=== PATIENT | female | born 1985 | race Hispanic/Latino ===

== ENCOUNTER → 2018-02-27 08:10 | Outpatient (CLI) | payer BC, SELFPAY ==
[2017-02-19 17:46] VITALS: BMI 28.8
--- OUTSIDE RECORDS SUMMARY | 2018-05-03 20:52 | XMS RPT_ITS ---
:1985 Author Organization OHIP Care Team Providers Name Role Phone Rocco Mix Attending Unavailable Rocco Mix Primary Care Unavailable PROBLEMS PROBLEMS DATE TYPE CONDITION / CODE ATTENDING STATUS SOURCE 02/27/2018 Unknown 272.4 - Other and Dominguez, Bruno Vargas unspecified [facility] hyperlipidemia / Hospital 272.4(ICD-9) Repository 02/27/2018 Unknown E78.5 - Dominguez Active Alicia Hyperlipidemia, [facility] unspecified / Hospital E78.5(ICD-10) Repository PROCEDURES PROCEDURES No Procedure Records FoundRESULTS RESULTS NMR LIPOPROFILE Collected: 02/27/2018 Status: F Source: [facility] 8:12 AM [facility] REPOSITORY TYPE CODE TESTS RESULT OUT OF RANGE REFERENCE UNITS LAB L3500.0050 NMR Normal LIPOPROFILE Result Comment: TEST RESULT LIMITS NMR LipoProfile LDL Particle Number LDL-P 2224 High nmol/L <1000 Low < 1000 Moderate 1000 - 1299 Borderline-High 1300 - 1599 High 1600 - 2000 Very High > 2000 Lipids LDL-C 171 High mg/dL 0 - 99 Optimal < 100 Above optimal 100 - 129 Borderline 130 - 159 High 160 - 189 Very high > 189 Comment: LDL-C is inaccurate if patient is non-fasting. HDL-C 52 mg/dL >39 Triglycerides 168 High mg/dL 0 - 149 Cholesterol, Total 257 High mg/dL 100 - 199 LDL and HDL Particles HDL-P (Total) 37.7 umol/L >=30.5 Small LDL-P 1457 High nmol/L <=527 LDL Size 20.2 Low nm >20.5 INTERPRETATIVE INFORMATION PARTICLE CONCENTRATION AND SIZE <--Lower CVD Risk Higher CVD Risk--> LDL AND HDL PARTICLES Percentile in Reference Population HDL-P (total) High 75th 50th 25th Low >34.9 34.9 30.5 26.7 <26.7 Small LDL-P Low 25th 50th 75th High <117 117 527 839 >839 LDL Size <-Large (Pattern A)-> <-Small (Pattern B)-> 23.0 20.6 20.5 19.0 Comment: Small LDL-P and LDL Size are associated with CVD risk, but not after LDL-P is taken into account. These assays were developed and their performance characteristics determined by [employer]. These assays have not been cleared by the [place] Food and Drug Administration. The clinical utility of these laboratory values have not been fully established. Insulin Resistance Score LP-IR Score 55 High <=45 INSULIN RESISTANCE MARKER <--Insulin Sensitive Insulin Resistant--> Percentile in Reference Population Insulin Resistance Score LP-IR Score Low 25th 50th 75th High <27 27 45 63 >63 Comment: LP-IR Score is inaccurate if patient is non-fasting. The LP-IR score is a laboratory developed index that has been associated with insulin resistance and diabetes risk and should be used as one component of a physician's clinical assessment. The LP-IR score listed above has not been cleared by the [place] Food and Drug Administration. [facility]. ORIGINAL REPORT ON FILE IN LAB CONTAINS ADDITIONAL TEST SITE INFORMATION. Performed By: #### L3500.0000 #### [facility] (refer to report for specific site) refer to report for address and phone number ALLERGIES ALLERGIES DATE TYPE / CODE NAME / CODE REACTION SEVERITY SOURCE 02/16/2017 Drug No Known Unknown [facility] Allergy/4160 Allergies/F00 Hospital 04387(SNOMED [id number](RXNOR Repository CT) M) ENCOUNTERS ENCOUNTERS ADMIT/DISCHARGE ACCOUNT ADMITTING ENCOUNTER LOCATION SOURCE NUMBER CLASS 02/27/2018 [id number] Ambulatory Alicia Alicia 2 [facility] ing:LAB.FUTSHONDA Repository E PAYERS PAYERS ENCOUNTER GUARANTOR PAYER SUBSCRIBER SOURCE 02/27/2018 Nancy [id number] Primary HUY BRIGIDMORASUKUMAR Vargas KYRA [facility] [place] [facility] Number: [facility] [address]Wno: ([id number]) [id number] Repository () Date:[id number], [place] [address]MZ: 02/27/2018 Secondary NOT GIVENUNK [place] Insurance:SELF PAY [facility] Number: Effective Repository Date:2018-02-27
== END ==
PROVIDERS: Family Provider Family Medicine; PCP Family Medicine; Visit Provider Family Medicine
DX: E78.5 Hyperlipidemia, unspecified (principal)
CPT/HCPCS: 36415; 80061; 83704

== ENCOUNTER 2018-04-17 12:27 | Outpatient (RCR) | payer BC, SELFPAY | END 2018-04-17 23:59 | disposition home or self-care (01) | LOC: NS 12:27 | PROVIDERS: Family Provider Family Medicine; PCP Family Medicine; Visit Provider Family Medicine | DX: E78.5 Hyperlipidemia, unspecified (principal); Z71.3 Dietary counseling and surveillance | CPT/HCPCS: S9470; G0463 ==

== ENCOUNTER → 2020-02-20 11:05 | Outpatient (CLI) | payer BC, SELFPAY ==
[2017-02-19 17:46] VITALS: BMI 28.8
== END ==
PROVIDERS: PCP Family Medicine; Referring Provider Obstetrics & Gynecology; Visit Provider Obstetrics & Gynecology
DX: N91.2 Amenorrhea, unspecified (principal)
CPT/HCPCS: 36415; 84702

== ENCOUNTER → 2020-02-22 16:53 | Outpatient (CLI) | payer BC, SELFPAY ==
[2017-02-19 17:46] VITALS: BMI 28.8
== END ==
PROVIDERS: PCP Family Medicine; Visit Provider Obstetrics & Gynecology
DX: N91.2 Amenorrhea, unspecified (principal)
CPT/HCPCS: 36415; 84702

== ENCOUNTER → 2020-02-26 08:58 | Outpatient (CLI) | payer BC, SELFPAY ==
[2017-02-19 17:46] VITALS: BMI 28.8
--- NOTE | 2020-02-26 09:04 | US_ITS ---
STUDY: FIRST TRIMESTER OBSTETRICAL ULTRASOUND REASON FOR EXAM: Female, 34 years old DATING. HCG DRAWN 02/22/20- 149,654 LMP: Unsure TECHNIQUE: Transabdominal TECHNICAL QUALITY: Adequate. PRIOR ULTRASOUND: None. FINDINGS: There is visualization of a single gestational sac in a normal intrauterine position. The mean sac diameter (MSD) measures 4.78 cm, indicating an estimated gestational age (EGA) of 10 weeks, 2 days. The gestational sac shape is within normal limits. There is no demonstrated yolk sac. The placenta is non-visualized. There is visualization of a live embryo. The crown-rump length (CRL) measures 2.91 cm, indicating an estimated gestational age (EGA) of 9 weeks, 3 days. There is demonstrated cardiac activity with a heart rate of 167 bpm. The estimated gestation age (EGA) by LMP is 12 weeks, 3 days. The estimated date of delivery (ANDREA) by LMP is 09/06/2020. The estimated gestation age (EGA) by US is 9 weeks, 6 days. The estimated date of delivery (ANDREA) by US is 09/24/2020. The uterus measures 11.6 cm x 7.4 cm x 6 cm. There is no demonstrated uterine fibroid. The cervix is closed. I suspect a 1.5 cm x 1.4 cm x 0.4 cm subchorionic hematoma. The right ovary measures 2 cm x 2.8 cm x 1.7 cm. There is no right ovarian cyst. There is no visualized right adnexal mass or complex lesion. The left ovary measures 2.5 cm x 2.4 cm x 1.3 cm. There is no left ovarian cyst. There is no visualized left adnexal mass or complex lesion. There is no fluid in the cul de sac. US/Init OB < 14Wks US IMPRESSION: Single live intrauterine gestation with a mean gestational age of 9 weeks and 6 days. Findings suggestive of a small 1.5 cm x 1.4 cm x 0.4 cm subchorionic hematoma. Electronically Signed: Ej Solano, at 13:08 EST , Service support ,
== END ==
PROVIDERS: PCP Family Medicine; Referring Provider Obstetrics & Gynecology; Visit Provider Obstetrics & Gynecology
DX: Z34.90 Encounter for supervision of normal pregnancy, unspecified, unspecified trimester (principal); Z3A.09 9 weeks gestation of pregnancy
CPT/HCPCS: 76801

== ENCOUNTER → 2020-03-07 | Outpatient (CLI) | payer BC, SELFPAY ==
[2020-03-07 13:02] VITALS: BMI 23.3
[2020-03-07 17:45] LABS: Amphetamine Urine VISTA NEGATIVE (<1000 ng/mL); Barbiturate Urine VISTA NEGATIVE (< 200 ng/mL); Benzodiazepine Urine VISTA NEGATIVE (< 200 ng/mL); Cocaine Urine VISTA NEGATIVE (< 300 ng/mL); Ecstacy Urine VISTA NEGATIVE (< 500 ng/mL); Methadone Urine VISTA NEGATIVE (< 300 ng/mL); PCP Urine VISTA NEGATIVE (< 25 ng/mL); THC Urine VISTA NEGATIVE (< 50 ng/mL); Vista UDS pH Range 6
[2020-03-11 13:50] LABS: HPV APTIMA, High Risk Negative (Negative)
== END | disposition home or self-care (01) ==
LOC: LABSPEC 16:51
PROVIDERS: PCP Family Medicine; Referring Provider Obstetrics & Gynecology; Visit Provider Obstetrics & Gynecology
DX: Z34.90 Encounter for supervision of normal pregnancy, unspecified, unspecified trimester (principal)
CPT/HCPCS: 80307; 87077; 87086; 87088; 87186; 87624; 88175; G0145

== ENCOUNTER → 2020-03-24 | Outpatient (CLI) | payer BC, SELFPAY ==
[2020-03-24 13:40] VITALS: BMI 23.1
== END | disposition home or self-care (01) ==
LOC: LABSPEC 16:51
PROVIDERS: PCP Family Medicine; Visit Provider Obstetrics & Gynecology
DX: O99.891 Other specified diseases and conditions complicating pregnancy (principal); M54.9 Dorsalgia, unspecified; Z3A.00 Weeks of gestation of pregnancy not specified
CPT/HCPCS: 87086; 87088

== ENCOUNTER → 2020-04-04 13:20 | Outpatient (CLI) | payer BC, SELFPAY ==
[2020-04-04 13:02] VITALS: BMI 23.9
[2020-04-04 14:00] LABS: Absolute Lymphocyte Count 2.41 X10^3/uL (0.83-4.51); Basophil# 0.01 X10^3/uL; Basophil% 0.1 % (0-1); Eosinophil# 0.07 X10^3/uL; Eosinophils% 0.6 % (0-5); Hematocrit 40.8 % (37-47); Hemoglobin 13.9 g/dL (12.0-15.0); Lymphocyte # 2.41 X10^3/ul (4.0); Lymphocyte % 21.8 % (19-41); Mean Corp Hgb Conc 34.1 g/dL (32-36); Mean Corpuscular Hgb 29.1 pg (27.0-32.0); Mean Corpuscular Volume 85.4 fL (81-99); Mean Platelet Vol. 9.4 fl (6.2-12.0); Monocyte# 0.48 X10^3/uL; Monocyte% 4.3 % (0-10); NRBC Flagged by Analyzer 0 % (0-5); Neutrophil # 8.02 X10^3/uL (2.7-7.7); Neutrophil % 72.7 % (47-70); Platelet Count 279 K/mm3 (150-450); RBC Distribution Width CV 12.5 % (11.6-14.6); RBC Distribution Width SD 38.5 fl (35.1-43.9); Red Blood Count 4.78 M/mm3 (4.2-5.4)
[2020-04-04 15:24] LABS: HIV - WCH Non-Reactive (Nonreactive); Hepatitis B Surface Antigen Non-Reactive (Nonreactive); Hepatitis C Antibody Non-Reactive (Nonreactive); Rubella IgG Reactive (Nonreactive); Syphilis Antibodies Non-reactive
[2020-04-04 20:37] LABS: Chlamydia Trachomatis by PCR Negative (Negative); Neisserai gonorrhoeae by PCR Negative (Negative); Probe Check PASS; Sample Adequacy Control PASS; Specimen Processing Control PASS
== END ==
PROVIDERS: PCP Family Medicine; Referring Provider Obstetrics & Gynecology; Visit Provider Obstetrics & Gynecology
DX: Z34.90 Encounter for supervision of normal pregnancy, unspecified, unspecified trimester (principal)
CPT/HCPCS: 36415; 85025; 86703; 86762; 86803; 86850; 86900; 86901; 87340; 87491; 87591

== ENCOUNTER → 2020-04-18 | Outpatient (CLI) | payer BC, SELFPAY ==
[2020-04-04 13:02] VITALS: BMI 23.9
== END | disposition home or self-care (01) ==
LOC: LABSPEC 14:39
PROVIDERS: PCP Family Medicine; Referring Provider Family Medicine; Visit Provider Family Medicine
DX: J06.9 Acute upper respiratory infection, unspecified (principal)
CPT/HCPCS: 87635; U0005; U0003

== ENCOUNTER → 2020-06-27 08:15 | Outpatient (CLI) | payer BC, SELFPAY ==
[2020-06-01 10:58] VITALS: BMI 24.7
[2020-06-27 08:33] LABS: Absolute Lymphocyte Count 2.17 X10^3/uL (0.83-4.51); Absolute Neutrophil Count 9.9 X10^3/uL (2.0-7.7); Basophil# 0.03 X10^3/uL; Basophil% 0.2 % (0-1); Eosinophil# 0.23 X10^3/uL; Eosinophils% 1.8 % (0-5); Hematocrit 40.3 % (37-47); Hemoglobin 13.3 g/dL (12.0-15.0); Lymphocyte # 2.17 X10^3/ul (0.83-4.51); Lymphocyte % 16.7 % (19-41); Mean Corpuscular Hgb 29.7 pg (27.0-32.0); Monocyte# 0.47 X10^3/uL; Monocyte% 3.6 % (0-10); NRBC Flagged by Analyzer 0 % (0-5); Neutrophil # 9.94 X10^3/uL (2.7-7.7); Neutrophil % 76.7 % (47-70); Platelet Count 266 K/mm3 (150-450); RBC Distribution Width CV 13.2 % (11.6-14.6); RBC Distribution Width SD 43.4 fl (35.1-43.9); Red Blood Count 4.48 M/mm3 (4.2-5.4)
[2020-06-27 08:49] LABS: Glucose Challenge Gest 1H 50g 84 mg/dL (70-140)
== END ==
PROVIDERS: Obstetrics & Gynecology; PCP Family Medicine; Referring Provider Obstetrics & Gynecology; Visit Provider Obstetrics & Gynecology
DX: Z34.90 Encounter for supervision of normal pregnancy, unspecified, unspecified trimester (principal); Z13.1 Encounter for screening for diabetes mellitus
CPT/HCPCS: 36415; 82950; 85025

== ENCOUNTER → 2020-08-31 12:27 | Outpatient (CLI) | payer BC, SELFPAY ==
[2020-06-01 10:58] VITALS: BMI 24.7
[2020-08-26 13:21] VITALS: BMI 26.4
--- NOTE | 2020-08-31 12:31 | US_ITS ---
STUDY: SECOND AND THIRD TRIMESTER OBSTETRICAL ULTRASOUND - LIMITED REASON FOR EXAM: Female, 35 years old growth at 36 weeks due to covid positive LMP: 12/20/2019. PRIOR ULTRASOUND: Comparison is made with prior study dated 02/26/2020. TECHNIQUE: Transabdominal TECHNICAL QUALITY: Adequate. FINDINGS: There is a single intrauterine fetus. The fetus is in a cephalic presentation. There is demonstrated cardiac activity with a heart rate of 132 bpm. There is a normal amniotic fluid volume. The largest amniotic fluid pocket measures 4.25 cm. The amniotic fluid index (MARKELL) is 12.56 cm. The placenta is fundal in location. There are Grade 2 placental changes. The cervix measures 3.8 cm in length. BIOMETRY: BPD: 8.97 cm: 36 weeks, 2 days HC: 32.73 cm: 37 weeks, 1 days AC: 33.5 cm: 37 weeks, 2 days FL: 7.07 cm: 36 weeks, 1 days Age by LMP: 36 weeks, 3 days. ANDREA by LMP: 09/25/2020. age by prior US: 36 weeks, 4 days. ANDREA by prior US: 09/24/2020. age by current US: 37 weeks, 6 days. ANDREA by current US: 09/22/2020. Estimated weight: 3102 grams, +/- 465 grams, 70 percentile. US/OB Limited With Biometrics IMPRESSION: Single live intrauterine gestation with mean gestational age of 36 weeks and 4 days. The measurements obtained today fall within the normal expected range. Electronically Signed: Ej Solano MD at 14:11 EDT , Service support ,
== END ==
PROVIDERS: PCP Family Medicine; Referring Provider Obstetrics & Gynecology; Visit Provider Obstetrics & Gynecology
DX: O98.513 Other viral diseases complicating pregnancy, third trimester (principal); U07.1 COVID-19; Z3A.36 36 weeks gestation of pregnancy
CPT/HCPCS: 76816

== ENCOUNTER → 2020-09-02 | Outpatient (CLI) | payer BC, SELFPAY ==
[2020-08-26 13:21] VITALS: BMI 26.4
== END | disposition home or self-care (01) ==
LOC: LAB 14:52 → LABSPEC 14:53
PROVIDERS: PCP Family Medicine; Referring Provider Obstetrics & Gynecology; Visit Provider Obstetrics & Gynecology
DX: O23.42 Unspecified infection of urinary tract in pregnancy, second trimester (principal); Z3A.00 Weeks of gestation of pregnancy not specified
CPT/HCPCS: 87077; 87081; 87186

== ENCOUNTER → 2020-09-21 13:30 | Outpatient (CLI) | payer BC, SELFPAY ==
[2020-06-01 10:58] VITALS: BMI 24.7
[2020-09-16 13:02] VITALS: BMI 26.4
--- NOTE | 2020-09-21 13:31 | US_ITS ---
STUDY: SECOND AND THIRD TRIMESTER OBSTETRICAL ULTRASOUND - LIMITED REASON FOR EXAM: Female, 35 years old GROWTH LMP: 12/20/2019. PRIOR ULTRASOUND: Comparison is made with prior examination dated 08/31/2020. TECHNIQUE: Transabdominal TECHNICAL QUALITY: Adequate. FINDINGS: There is a single intrauterine fetus. The fetus is in a cephalic presentation. There is demonstrated cardiac activity with a heart rate of 137 bpm. There is a normal amniotic fluid volume. The largest amniotic fluid pocket measures 3.4 cm. The amniotic fluid index (MARKELL) is 11 point cm. The placenta is fundal in location. There are Grade 2 placental changes. BIOMETRY: BPD: 9.14 cm: 37 weeks, 0 days HC: 34.81 cm: 40 weeks, 2 days AC: 36 cm: 39 weeks, 6 days FL: 7.47 cm: 30 weeks, 1 days Age by LMP: 39 weeks, 3 days. ANDREA by LMP: 09/25/2020. age by prior US: 39 weeks, 6 days. ANDREA by prior US: 09/22/2020. age by current US: 38 weeks, 5 days. ANDREA by current US: 09/30/2020. Estimated weight: 3692 grams, +/- 554 grams, 65 percentile. US/OB Limited With Biometrics IMPRESSION: Single live intrauterine gestation with a mean gestational age of 39 weeks and 6 days. The measurements obtained today fall within the normal expected range. Electronically Signed: Ej Solano MD at 15:49 EDT , Service support ,
== END ==
PROVIDERS: PCP Family Medicine; Referring Provider Obstetrics & Gynecology; Visit Provider Obstetrics & Gynecology
DX: O98.513 Other viral diseases complicating pregnancy, third trimester (principal); U07.1 COVID-19; Z3A.39 39 weeks gestation of pregnancy
CPT/HCPCS: 76816

== ENCOUNTER 2020-09-23 08:30 | Outpatient (CLI) | payer BC, SELFPAY ==
[2020-09-16 13:02] VITALS: BMI 26.4
[2020-09-23 08:50] VITALS: TEMP 36.5
[2020-09-23 08:51] VITALS: BP 128/76; PULSE 86; PULSE 92; O2SAT 97
[2020-09-23 09:01] VITALS: BMI 25.8
--- NOTE | 2020-09-26 09:14 | OB.TRI.PN ---
Progress Notes Date of Service: 09/23/20 Progress Note: Patient presents for triage evaluation secondary to contractions. Patient made no cervical change and contractions decreased in frequency. Discharged to home in stable condition FHT: Moderate variability reactive no decelerations category I tracing [place]: q5-10 Contractions Assessment and plan: Reactive NST, reassuring maternal and status patient discharged to home to follow-up at next scheduled visit. See problem list details for additional plan information. Charges/Coding Procedures Urinary/Genital [id number]: 74289-02 non-stress test Interp
== END 2020-09-23 10:40 | disposition home or self-care (01) ==
LOC: WPOUT 08:41 → WP 08:42
PROVIDERS: PCP Family Medicine; Visit Provider Obstetrics & Gynecology
DX: O47.9 False labor, unspecified (principal); Z3A.00 Weeks of gestation of pregnancy not specified
CPT/HCPCS: 59025; 59050; 99218; G0378

== ENCOUNTER 2020-09-24 00:58 | Inpatient (IN) | payer BC, SELFPAY ==
[2020-09-23 14:40] VITALS: BMI 25.8
[2020-09-24] VITALS (90 sets, daily range): BP systolic 86–150; BP diastolic 51–84; PULSE 65–147; RESP 16–20; TEMP 36.2–37.6; O2SAT 82–100; BMI 27.6
[2020-09-24] MEDS: Lactated Ringers 1,000 ML 200 ML IV ×2 (00:55→06:49)
[2020-09-24] MEDS: Lactated Ringers 500 ML 999 ML IV ×2 (01:07→05:42)
[2020-09-24 01:25] LABS: Absolute Lymphocyte Count 2.01 X10^3/uL (0.83-4.51); Absolute Neutrophil Count 13.5 X10^3/uL (2.0-7.7); Basophil# 0.02 X10^3/uL; Basophil% 0.1 % (0-1); Eosinophil# 0.02 X10^3/uL; Eosinophils% 0.1 % (0-5); Hematocrit 36.9 % (37-47); Hemoglobin 11.9 g/dL (12.0-15.0); Lymphocyte # 2.01 X10^3/ul (0.83-4.51); Lymphocyte % 12.3 % (19-41); Mean Corp Hgb Conc 32.2 g/dL (32-36); Mean Corpuscular Hgb 26.5 pg (27.0-32.0); Mean Corpuscular Volume 82.2 fL (81-99); Mean Platelet Vol. 10.1 fl (6.2-12.0); Monocyte# 0.77 X10^3/uL; Monocyte% 4.7 % (0-10); NRBC Flagged by Analyzer 0 % (0-5); Neutrophil # 13.49 X10^3/uL (2.7-7.7); Neutrophil % 82.3 % (47-70); Platelet Count 263 K/mm3 (150-450); RBC Distribution Width CV 14.3 % (11.6-14.6); Red Blood Count 4.49 M/mm3 (4.2-5.4); White Blood Count 16.4 K/mm3 (4.4-11.0)
[2020-09-24] MEDS: fentaNYL-bupivacaine (epidural) 100 ML BAG EPIDURAL ×2 (02:32→06:48)
[2020-09-24] MEDS: Penicillin G 3,000,000 Units 50 ML 100 UNITS IV (06:25)
[2020-09-24] MEDS: Oxytocin 30 units/NS 500 ml 30 UNITS/500 ML IV.SOLN IV (07:00)
[2020-09-24] MEDS: Mag Hydrox/Al Hydrox/Simeth 30 ML UDC PO (08:35)
--- NOTE | 2020-09-24 08:37 | HP.PCM.OB_ITS ---
HPI - General General Date of Admission: 09/24/20 HPI Narrative NANCY AHUMADA 35-year-old female G2, P1 at 40 weeks gestation who presents in active labor. Patient has a history of prior for breech and desires trial of labor after Maternal Data Information ANDREA Calculator Estimated Delivery Date Method Current WG Current Estimate 09/24/20 Ultrasound #1 40w 0d PFSH PFSH Medical History Hyperlipemia Positive GBS test Home Medications vit no.[id number] 1 ea PO DAILY 02/16/17 [History Last Taken 09/22/20 09:00 1 tab] aspirin [Baby Aspirin] 81 mg PO DAILY 09/23/20 [History Last Taken 09/22/20 09:00 81 mg] Allergy/AdvReac Type Severity Reaction Status Date / Time No Known Allergies Allergy Verified 09/16/20 13:01 Family History Father Cancer Liver Grandfather Myocardial infarction Surgical History H/O section Social History adopted: No household members: family housing: house number of children: 1 current occupational status: employed 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 Date Name GA/Weeks Outcome Route Bth Weight Gen Labor Lgth Anesthesia Del Locatn Provider FOB 02/21/17 Kamryn 40 live - full term 6lbs 8oz Femal e scheduled c/s spinal [facility] [place] Delivery Date: 02/21/17 no complications- breech presentation Lia Steele Visit Details Expected Delivery Route/Plan TOLAC patient counseled regarding risks/benefits of trial of labor versus repeat . ACOG/uptodate education given to patient. 70% likelihood of success per calculator TOLAC consent form signed: 08/10 Labor Preferences- CB/BF classes: no labor support person: Amador labor intervention preferences: [] pain management options preferred: limited intervention cut cord/dad catch: yes : yes PP control planned: vasectomy discussed possible routes of delivery and associated risks: [] special requests: [] Plans covid status: april 2020 flu vaccine: given this season tdap vaccine: given rhogam: NA LARC form signed: yes movement and labor precautions reviewed. Problem list reviewed and updated with the most current plan of care details and appropriate orders placed. Relevant counseling for the gestational age provided. Continue routine care and follow up unless otherwise noted in visit notes/problem list details OB Flowsheet Initial Weight: 140 lb Date -?-?-?-?-?-?-?-?-?-?-?-?- EGA Weight BP Urine Prot -?-?-?-?-?-?-?-?-?-?-?-?- Glucose FHR FuHt Pres Dilation -?-?-?-?-?-?-?-?-?-?-?-?- Effaced St Visit Note 03/07/20 -?-?-?-?-?-?-?-?-?-?-?-?- 11w 2d 140 lb (+0 oz) 118/80 -?-?-?-?-?-?-?-?-?-?-?-?- 170 -?-?-?-?-?-?-?-?-?-?-?-?- SM- CRL cons wit h LMP 03/24/20 -?-?-?-?-?-?-?-?-?-?-?-?- 13w 5d 139 lb (-16 oz) 120/82 -?-?-?-?-?-?-?-?-?-?-?-?- Negative 155 -?-?-?-?-?-?-?-?-?-?-?-?- GP - low back pa in for last 2 days. UA done and negative, but sent for culture. Bedside ultrasound performed and reassurance provided. 04/04/20 -?-?-?-?-?-?-?-?-?-?-?-?- 15w 2d 144 lb (+4 lb) 100/60 -?-?-?-?-?-?-?-?-?-?-?-?- 150 -?-?-?-?-?-?-?-?-?-?-?-?- SM- no vb lof no ctx 05/04/20 -?-?-?-?-?-?-?-?-?-?-?-?- 19w 4d 140 lb 6 oz (+6 oz) 122/60 Negative -?-?-?-?-?-?-?-?-?-?-?-?- Negative 150 -?-?-?-?-?-?-?-?-?-?-?-?- SM- recovered fr om covid doing well taking ASA. 06/01/20 -?-?-?-?-?-?-?-?-?-?-?-?- 23w 4d 149 lb (+9 lb) 120/78 Negative -?-?-?-?-?-?-?-?-?-?-?-?- Negative 130 -?-?-?-?-?-?-?-?-?-?-?-?- GP - no cramping , LOF, VB, DFM. Discussed COVID and vaccine in . Anatomy nl. 06/27/20 -?-?-?-?-?-?-?--?-?-?-?-?- 27w 2d 149 lb (+9 lb) 104/60 Negative -?-?-?-?-?-?-?-?-?-?-?-?- Negative 150 27 -?-?-?-?-?-?-?-?-?-?-?-?- GP - no LOF, VB, DFM, ctx. 3rd trimester labs today - CBC nl, GCT pending. GP - no LOF, VB, DFM, ctx. 3 rd trimester labs today - CBC and GCT nl. 07/13/20 -?-?-?-?-?-?-?-?-?-?-?-?- 29w 4d 148 lb 8 oz (+8 lb 8 oz) 112/60 Negative -?-?-?-?-?-?-?-?-?-?-?-?- Negative 136 29 -?-?-?-?-?-?-?-?-?-?-?-?- MH-No VB, LOF. G ood FM. Nl 28 wk labs. Sched growth US. Taking ASA daily 07/28/20 -?-?-?-?-?-?-?-?-?-?-?-?- 31w 5d 153 lb (+13 lb) 112/70 -?-?-?-?-?-?-?-?-?-?-?-?- 130 31 -?-?-?-?-?-?-?-?-?-?-?-?- SM- no vb lof go od fm no regular ctx co heartburn- declineing intervention, occasional tums 08/10/20 -?-?-?-?-?-?-?-?-?-?-?-?- 33w 4d 154 lb 2 oz (+14 lb 2 oz) 110/72 Negative -?-?-?-?-?-?-?-?-?-?-?-?- Negative 145 33 Cephalic -?-?-?-?-?-?-?-?-?-?-?-?- GP - no LOF, VB, DFM, ctx. Confirmed vtx on US. TOLAC consent signed. 08/26/20 -?-?-?-?-?-?-?-?-?-?-?-?- 35w 6d 155 lb 8 oz (+15 lb 8 oz) 94/62 Negative -?-?-?-?-?-?-?-?-?-?-?-?- Negative 145 35 Cephalic -?-?-?-?-?-?-?-?-?-?-?-?- SM- no vb lof go od fm no regular ctx 09/02/20 -?-?-?-?-?-?-?-?-?-?-?-?- 36w 6d Negative -?-?-?-?-?-?-?-?-?-?-?-?- Negative 150 36 Cephalic 0 -?-?-?-?-?-?-?--?-?-?-?-?- GP - no LOF, VB, DFM, ctx. GBS done today. 09/09/20 -?-?-?-?-?-?-?-?-?-?-?-?- 37w 6d 158 lb (+18 lb) 120/66 Negative -?-?-?-?-?-?-?-?-?-?-?-?- Negative 140 37 Cephalic -?-?-?-?-?-?-?-?-?-?-?-?- SM- no vb lof st ill feeling but fm but it is different. no regular ctx 09/16/20 -?-?-?-?-?-?-?-?-?-?-?-?- 38w 6d 159 lb 8 oz (+19 lb 8 oz) 114/76 Negative -?-?-?-?-?-?-?-?-?-?-?-?- Negative 140 38 Cephalic 0 -?-?-?-?-?-?-?-?-?-?-?-?- GP - no LOF, VB, ctx. DFM today - NST reactive. Discussed delivery by 41w with hx c/s 09/23/20 -?-?-?-?-?-?-?-?-?-?-?-?- 39w 6d 159 lb (+19 lb) 112/70 -?-?-?-?-?-?-?-?-?-?-?-?- 145 39 Cephalic 3 -?-?-?-?-?-?-?-?-?-?-?-?- 80 -2 GP - no LO F, VB, dFM. Ctx q7min. Small amount of change from earlier - discussed in early labor. Return precautions reviewed. 09/24/20 -?-?-?-?-?-?-?-?-?-?-?-?- 40w 0d 160 lb 12.8 oz (+20 lb 12.8 oz) 119/84 110/70 132/71 128/72 126/74 137/69 127/67 102/63 110/58 99/64 105/58 109/57 107/51 112/53 112/53 122/71 86/51 106/59 88/52 87/51 111/68 100/55 92/54 100/59 -?-?-?-?-?-?-?-?-?-?-?-?- -?-?-?-?-?-?-?-?-?-?-?-?- NST FHR Rate Baby A Baseline: 130 Variability:: Moderate (periods of minimal) Accelerations:: 15 x 15 Decelerations:: Late (intermittent) FHR Category:: Category II Uterine Activity:: q3-5 min ROS Eyes Eyes: Reports systems reviewed and no addt'l complaints, except as documented ENT HEENT: Reports systems reviewed and no addt'l complaints, except as documented Cardiovascular Cardiovascular: Reports systems reviewed and no addt'l complaints, except as documented Respiratory/Chest Respiratory/Chest: Reports systems reviewed and no addt'l complaints, except as documented Gastrointestinal Gastrointestinal: Reports systems reviewed and no addt'l complaints, except as documented Genitourinary Genitourinary: Reports systems reviewed and no addt'l complaints, except as documented Musculoskeletal Musculoskeletal: Reports systems reviewed and no addt'l complaints, except as documented Integumentary Integumentary: Reports systems reviewed and no addt'l complaints, except as documented Neurologic Neurologic: Reports systems reviewed and no addt'l complaints, except as documented Psychiatric Psychiatric: Reports systems reviewed and no addt'l complaints, except as documented Endocrine Endocrinology: Reports systems reviewed and no addt'l complaints, except as documented Hematologic/Lymphatic Hematologic/Lymphatic: Reports systems reviewed and no addt'l complaints, except as documented Allergic/Immunologic Allergic/Immunologic: Reports systems reviewed and no addt'l complaints, except as documented Vital Signs Vital Signs Vital Signs: 09/24/20 00:56 09/24/20 01:06 09/24/20 01:12 Temperature 98.2 F Temperature Source Pulse Rate 88 89 94 Respiratory Rate Blood Pressure 119/84 H Blood Pressure Mean BP Systolic 119 BP Diastolic 84 Blood Pressure Source Blood Pressure Position Blood Pressure Location Pulse Ox 98 99 100 Oxygen Delivery Method 09/24/20 01:45 09/24/20 02:00 09/24/20 02:01 Temperature 98.2 F Temperature Source Temporal Pulse Rate 93 147 H 101 H Respiratory Rate Blood Pressure 110/70 Blood Pressure Mean BP Systolic 110 BP Diastolic 70 Blood Pressure Source Blood Pressure Position Blood Pressure Location Pulse Ox 86 97 Oxygen Delivery Method 09/24/20 02:03 09/24/20 02:06 09/24/20 02:08 Temperature Temperature Source Pulse Rate 93 94 100 Respiratory Rate Blood Pressure 132/71 H 128/72 H Blood Pressure Mean BP Systolic 132 128 BP Diastolic 71 72 Blood Pressure Source Blood Pressure Position Blood Pressure Location Pulse Ox 97 Oxygen Delivery Method 09/24/20 02:11 09/24/20 02:13 09/24/20 02:16 Temperature Temperature Source Pulse Rate 80 78 86 Respiratory Rate Blood Pressure 126/74 H Blood Pressure Mean BP Systolic 126 BP Diastolic 74 Blood Pressure Source Blood Pressure Position Blood Pressure Location Pulse Ox 98 98 Oxygen Delivery Method 09/24/20 02:18 09/24/20 02:21 09/24/20 02:23 Temperature Temperature Source Pulse Rate 82 89 91 Respiratory Rate Blood Pressure 137/69 H 127/67 H Blood Pressure Mean BP Systolic 137 127 BP Diastolic 69 67 Blood Pressure Source Blood Pressure Position Blood Pressure Location Pulse Ox 98 Oxygen Delivery Method 09/24/20 02:26 09/24/20 02:28 09/24/20 02:31 Temperature Temperature Source Pulse Rate 86 89 101 H Respiratory Rate Blood Pressure 102/63 Blood Pressure Mean BP Systolic 102 BP Diastolic 63 Blood Pressure Source Blood Pressure Position Blood Pressure Location Pulse Ox 97 92 97 Oxygen Delivery Method 09/24/20 02:33 09/24/20 02:36 09/24/20 02:38 Temperature Temperature Source Pulse Rate 101 H 90 98 Respiratory Rate Blood Pressure 110/58 L 99/64 Blood Pressure Mean BP Systolic 110 99 BP Diastolic 58 64 Blood Pressure Source Blood Pressure Position Blood Pressure Location Pulse Ox 98 Oxygen Delivery Method 09/24/20 02:41 09/24/20 02:46 09/24/20 02:49 Temperature Temperature Source Pulse Rate 101 H 101 H 117 H Respiratory Rate Blood Pressure 105/58 L 109/57 L Blood Pressure Mean BP Systolic 105 109 BP Diastolic 58 57 Blood Pressure Source Blood Pressure Position Blood Pressure Location Pulse Ox 99 98 Oxygen Delivery Method 09/24/20 02:51 09/24/20 02:53 09/24/20 02:56 Temperature Temperature Source Pulse Rate 97 104 H 108 H Respiratory Rate Blood Pressure 107/51 L Blood Pressure Mean BP Systolic 107 BP Diastolic 51 Blood Pressure Source Blood Pressure Position Blood Pressure Location Pulse Ox 98 99 Oxygen Delivery Method 09/24/20 02:59 09/24/20 03:15 09/24/20 03:21 Temperature Temperature Source Pulse Rate 111 H 111 H 90 Respiratory Rate 20 H Blood Pressure 112/53 L 112/53 L Blood Pressure Mean 72 BP Systolic 112 BP Diastolic 53 Blood Pressure Source Monitor Blood Pressure Position Semi-Fowlers Blood Pressure Location Right Arm Pulse Ox 99 99 Oxygen Delivery Method Room Air 09/24/20 03:22 09/24/20 04:18 09/24/20 04:19 Temperature 97.4 F L Temperature Source Temporal Pulse Rate 97 91 Respiratory Rate Blood Pressure 122/71 H Blood Pressure Mean BP Systolic 122 BP Diastolic 71 Blood Pressure Source Blood Pressure Position Blood Pressure Location Pulse Ox 82 99 Oxygen Delivery Method 09/24/20 04:24 09/24/20 04:28 09/24/20 04:29 Temperature Temperature Source Pulse Rate 84 83 77 Respiratory Rate Blood Pressure 86/51 L 106/59 L Blood Pressure Mean BP Systolic 86 106 BP Diastolic 51 59 Blood Pressure Source Blood Pressure Position Blood Pressure Location Pulse Ox 98 Oxygen Delivery Method 09/24/20 04:38 09/24/20 04:43 09/24/20 04:48 Temperature Temperature Source Pulse Rate 75 72 73 Respiratory Rate Blood Pressure Blood Pressure Mean BP Systolic BP Diastolic Blood Pressure Source Blood Pressure Position Blood Pressure Location Pulse Ox 97 96 96 Oxygen Delivery Method 09/24/20 04:53 09/24/20 04:58 09/24/20 05:03 Temperature Temperature Source Pulse Rate 76 73 73 Respiratory Rate Blood Pressure Blood Pressure Mean BP Systolic BP Diastolic Blood Pressure Source Blood Pressure Position Blood Pressure Location Pulse Ox 97 97 97 Oxygen Delivery Method 09/24/20 05:08 09/24/20 05:13 09/24/20 05:18 Temperature Temperature Source Pulse Rate 72 73 72 Respiratory Rate Blood Pressure Blood Pressure Mean BP Systolic BP Diastolic Blood Pressure Source Blood Pressure Position Blood Pressure Location Pulse Ox 97 97 97 Oxygen Delivery Method 09/24/20 05:23 09/24/20 05:28 09/24/20 05:33 Temperature Temperature Source Pulse Rate 69 74 69 Respiratory Rate Blood Pressure Blood Pressure Mean BP Systolic BP Diastolic Blood Pressure Source Blood Pressure Position Blood Pressure Location Pulse Ox 97 97 98 Oxygen Delivery Method 09/24/20 05:37 09/24/20 05:38 09/24/20 05:40 Temperature 97.3 F L Temperature Source Temporal Pulse Rate 78 80 Respiratory Rate Blood Pressure 88/52 L 87/51 L Blood Pressure Mean BP Systolic 88 87 BP Diastolic 52 51 Blood Pressure Source Blood Pressure Position Blood Pressure Location Pulse Ox Oxygen Delivery Method 09/24/20 05:46 09/24/20 06:13 09/24/20 07:21 Temperature 98.0 F Temperature Source Temporal Pulse Rate 80 82 80 Respiratory Rate Blood Pressure 111/68 100/55 L Blood Pressure Mean BP Systolic 111 100 BP Diastolic 68 55 Blood Pressure Source Blood Pressure Position Blood Pressure Location Pulse Ox 99 Oxygen Delivery Method 09/24/20 07:22 09/24/20 08:29 09/24/20 08:31 Temperature 97.1 F L Temperature Source Temporal Pulse Rate 77 98 89 Respiratory Rate Blood Pressure 92/54 L 100/59 L Blood Pressure Mean BP Systolic 92 100 BP Diastolic 54 59 Blood Pressure Source Blood Pressure Position Blood Pressure Location Pulse Ox 99 Oxygen Delivery Method Weight Weight: 160 lb 12.8 oz Body Mass Index (BMI) 27.6 Physical Exam Const alert, oriented x3, no apparent distress, average body habitus, healthy appearing and well nourished HEENT normocephalic and moist oral mucous membranes Head and Scalp: atraumatic Eyes PERRL and EOMs intact bilaterally Neck full ROM Resp normal respiratory effort, no retractions and no use of accessory muscles Cardio regular rate and regular rhythm GI soft to palpation, non-tender and non-distended Extremity normal to inspection and full ROM Skin no rashes or lesions noted Neuro no focal motor deficits and no sensory deficits noted Psych mental status grossly normal, affect normal, speech normal and activity/motor behavior normal Labs Labs Labs: Blood Type A POSITIVE Antibody Screen NEGATIVE Hct 36.9 % (37-47) L Hgb 11.9 g/dL (12.0-15.0) L Obstetrics US Syphilis Total Ab Non-reactive Rubella IgG Antibody Reactive (Nonreactive) Hep Bs Antigen Non-Reactive (Nonreactive) HIV 1&2 Antibody Non-Reactive (Nonreactive) C.trachomatis DNA (PCR) Negative (Negative) Glucose 1 Hr 50 gm 84 mg/dL (70-140) Group B Strep DNA POSITIVE (Negative) H Rhogam given: No Assessment & Plan (1) Positive GBS test: COMMENT: PCN in labor (2) Lab test positive for detection of COVID-19 virus: COMMENT: 81mg asa daily growth US @ 32 wks, nl growth (3) GBS (group B streptococcus) UTI complicating : QUALIFIERS: Trimester: second trimester Qualified Code(s): O23.42 - Unspecified infection of urinary tract in , second trimester COMMENT: tx w/ Macrobid; needs repeat culture neg; Needs PCN in labor (4) Supervision of other normal : COMMENT: PRR ANDREA: 09/24/ Boy! Chance PC: KAMRYN SPOUSE: AMADOR (5) : QUALIFIERS: Weeks of gestation: 39 weeks Qualified Code(s): Z3A.39 - 39 weeks gestation of COMMENT: declines genetic and carrier, ntd. nl anatomy (6) H/O section: COMMENT: 2018- breech presentation PATIENT WOULD LIKE TO (7) Active labor at term: PLAN: Patient presents IAL, plan expectant management for , pitocin/AROM PRN if needed. Pain management: plans epidural. GBS positive plan IV PCN. Management of any complications: none I have reviewed the [facility] and made any clinically relevant updates.
[2020-09-24] MEDS: Oxytocin 30 units/NS 500 ml 30 UNITS/500 ML IV.SOLN 334 UNITS IV (10:10)
[2020-09-24] MEDS: Methylergonovine 0.2 MG/ML Ampul IM (10:15)
--- NOTE | 2020-09-24 10:39 | OP.PCM_ITS ---
Assessment & Plan (1) (vaginal after ): COMMENT: GP 09/24 [place] - Chance (2) Positive GBS test: COMMENT: PCN in labor (3) Active labor at term: (4) Lab test positive for detection of COVID-19 virus: COMMENT: 81mg asa daily growth US @ 32 wks, nl growth (5) GBS (group B streptococcus) UTI complicating : QUALIFIERS: Trimester: second trimester Qualified Code(s): O23.42 - Unspecified infection of urinary tract in , second trimester COMMENT: tx w/ Macrobid; needs repeat culture neg; Needs PCN in labor (6) Supervision of other normal : COMMENT: PRR ANDREA: 09/24/ Brian Fletcher PC: ANDREA SPOUSE: HUY (7) : QUALIFIERS: Weeks of gestation: 39 weeks Qualified Code(s): Z3A.39 - 39 weeks gestation of COMMENT: declines genetic and carrier, ntd. nl anatomy (8) H/O section: COMMENT: 2018- breech presentation PATIENT WOULD LIKE TO Maternal Data Information ANDREA Calculator Estimated Delivery Date Method Current WG Current Estimate 09/24/20 Ultrasound #1 40w 0d Vaginal Delivery Maternal Presentation Maternal Presentation: Active Labor Maternal Presentation: 35-year-old G2, P1 at 40 weeks gestation admitted in active labor. Patient has a history of a prior and desired a trial of labor after . She was augmented with artificial rupture of membranes and Pitocin. Type of Induction: Pitocin and Amniotomy Operative Information Date of Procedure: 09/24/20 Pre-Operative Diagnosis: Term , trial of labor after , active labor Post-Operative Diagnosis: Same Surgery / Procedure Performed: Spontaneous Vaginal Delivery Type of Anesthesia: Epidural Drain: Gambino to straight drain Estimated Blood Loss: 300 Findings Description of Procedure: Patient began pushing and delivered the head in the ARABELLA presentation. The head was delivered atraumatically and a loose nuchal cord was noted and delivered through. The anterior and posterior shoulders delivered without complication followed by the rest of the and the was placed on the maternal abdomen. Delayed cord clamping was employed for approximately 60 seconds. Cord was clamped and cut and gentle traction was applied to the cord and the placenta delivered spontaneously immediately following it was noted to be intact with three-vessel cord. The perineum and vagina were inspected and a midline second-degree perineal laceration was noted and repaired in the standard fashion using 3-0 Vicryl Rapide and 2-0 Vicryl suture. EBL was 300 cc. Patient and tolerated delivery well. Presentation: Vertex and ARABELLA Amniotic Membrane Rupture Type: Artificial Amniotic Fluid Description: Bloody Placental Delivery Description: Spontaneous Placenta Disposition: [facility] Cord Vessel Description: 3 Vessels Cord Entanglement: Around neck x 1, loose Nuchal Cord Compression: Without compression Infant A Gender: Male Delayed Cord Clamping: Yes Post Vaginal Delivery Medications Given After Delivery: IV Pitocin and IM Methergin Episiotomy Description: None Laceration: Midline, Perineal Extension/lac and 2nd degree Complication Complications: None Procedures Urinary/Genital [id number]: [id number] delivery [facility]
[2020-09-24] MEDS: 0.9% Saline Lock 10 ML Syringe IV (12:47)
--- NOTE | 2020-09-24 13:53 | NURSING ---
Patient is not uncomfortable with bladder at this time. Mild bladder distention noted. Bedside shift report given to Kaykay Steve RN. Will give patient more time to void before straight cath. Patient encouraged to attempt to void frequently and to notify staff if she gets uncomfortable.
[2020-09-24] MEDS: Acetaminophen 500 MG Tablet 1000 MG PO (18:21)
--- NOTE | 2020-09-24 18:24 | NURSING ---
Pt c/o LEE, tylenol given per order. BP 112/
[2020-09-25] VITALS (8 sets, daily range): BP systolic 104–114; BP diastolic 60–81; PULSE 68–100; RESP 16; TEMP 36.2–36.9; O2SAT 98
[2020-09-25] MEDS: Acetaminophen 500 MG Tablet 1000 MG PO (08:09)
--- NOTE | 2020-09-25 10:05 | PCM.PN.OB ---
Subjective Subjective Patient doing well without complaints. Tolerating PO. Ambulating and voiding without difficulty. Breast feeding well. Denies chest pain, shortness of breath, calf pain/swelling, fevers, chills, lightheadedness. Objective Data Objective Data Vital Signs: Vital Signs Temp Pulse Resp BP Pulse Ox 98.1 F 77 16 106/62 98 09/25/20 08:05 09/25/20 08:21 09/25/20 08:05 09/25/20 08:21 09/25/20 08:05 Oxygen Delivery Method Room Air Weight: 160 lb 12.8 oz Body Mass Index (BMI) 27.6 Intake & Output: Intake and Output for Last 24 Hours 09/23/20 09/24/20 09/25/20 23:59 23:59 23:59 Intake Total 3308.93 / 3308.93 Output Total 1000 / 1000 Balance 2308.93 / 2308.93 Lab / Micro Data Result Diagrams: 09/24/20 00:55 Micro: Microbiology 09/24/20 01:15 Mucosa - Nasopharyngeal SARS-CoV-2 Antigen (Rapid) - Final ROS Constitutional Constitutional: Denies fever(s) Cardiovascular Cardiovascular: Denies chest pain, dyspnea or lightheadedness Gastrointestinal Gastrointestinal: Reports abdominal pain; Denies constipation or diarrhea Neurologic Neurologic: Denies dizziness or headache(s) Physical Exam Const alert, oriented x3, no apparent distress, average body habitus, healthy appearing and well nourished HEENT normocephalic Head and Scalp: atraumatic Eyes PERRL and EOMs intact bilaterally Neck full ROM Lymph Lymphatic: no lymphadenopathy noted Resp normal respiratory effort, no retractions and no use of accessory muscles Cardio regular rate GI soft to palpation, non-tender and non-distended Palpation: other Other Details: fundus firm Extremity normal to inspection and no clubbing, cyanosis or edema Skin no rashes or lesions noted Neuro no focal motor deficits and no sensory deficits noted Psych mental status grossly normal, affect normal and speech normal Assessment & Plan (1) (vaginal after ): COMMENT: GP 09/24 [place] - Chance PLAN: s/p PPD # 1 1. routine post delivery care 2. breast feeding- support given 3. rh positive 4. rubella immune
--- NOTE | 2020-09-25 10:06 | PCM.DC ---
Discharge Instructions Diet Discharge Diet: No restrictions Activity Discharge Activity: Return to Normal Activity, May Not Drive (while taking narcotic pain medications.) and May Shower May resume sexual activity in: 4-6 weeks Dressing / Incision Call your doctor if your incision/area has: Continuous Slow Oozing, Sudden Increased Bleeding, Increased Pain/ Swelling, Increased Redness and Foul Smelling Discharge Follow Up Care When: Call to make an appointment with your doctor in 6 weeks. If you had elevated Blood Pressure or 4th degree laceration you will need to be seen in 2 weeks. Test Results: Test results from this visit will be discussed in further detail at your follow-up appointment, if applicable. Discharge Plan Admission Admit Date/Time: 09/24/20 00:58 Attending Provider: Ashanti Laughlin Primary Care Provider: Ge Mix Instructions Patient Instructions: After a Vaginal Discharge Orders/Prescriptions Prescriptions: New ibuprofen 800 mg tablet 800 mg PO Q8H PRN (Reason: pain) Qty: 30 RF: 1 Continued vit no.[id number] 1 EACH tablet 1 ea PO DAILY RF: 0 Discontinued aspirin [Baby Aspirin] 81 mg Tablet,Chewable 81 mg PO DAILY RF: 0 Referrals / Follow Up: Ge Mix MD [Primary Care Provider] - Disposition Disposition (needs filled in before D/C Order can be placed): Home, Self Care
[2020-09-25] MEDS: Ibuprofen 600 MG Tablet PO (11:09)
== END 2020-09-25 14:45 | disposition home or self-care (01) | DRG 806 ==
LOC: WPOUT 01:00 → WP 01:00
PROVIDERS: Admitting Provider Obstetrics & Gynecology; PCP Family Medicine; Visit Provider Obstetrics & Gynecology
DX: O65.5 Obstructed labor due to abnormality of maternal pelvic organs (principal); O98.82 Other maternal infectious and parasitic diseases complicating childbirth; Z37.0 Single live birth; O34.219 Maternal care for unspecified type scar from previous cesarean delivery; B95.1 Streptococcus, group B, as the cause of diseases classified elsewhere; O69.81X0 Labor and delivery complicated by cord around neck, without compression, not applicable or unspecified; Z3A.40 40 weeks gestation of pregnancy; Z79.82 Long term (current) use of aspirin; Z82.49 Family history of ischemic heart disease and other diseases of the circulatory system
CPT/HCPCS: 59025; 59050; 85025; 86850; 86900; 86901; 87426; 99218; J7120; A4216; G0378

== ENCOUNTER 2020-09-28 18:04 | Emergency (ER) | payer BC, SELFPAY ==
[2020-09-28 18:05] VITALS: BP 125/85; PULSE 59; RESP 16; TEMP 36.4; O2SAT 100; BMI 25.2
--- NOTE | 2020-09-28 18:52 | EX.ED.VIS.HA ---
HPI History of Present Illness Chief Complaint: Headache Informant: patient Onset/Context/Timing Onset: Days Context: Gradual Timing: Continuous Quality -Headache: Positive for Sharp Location: Generalized Worsened by: Sitting, standing Relieved by: Laying flat Associated Symptoms/Injury Associated Symptoms: Positive for Nausea; Negative for Fever, Vomiting, Sore Throat, Sinus Pressure, Numbness, Tingling, Preceding Aura, Visual Changes, Blurred Vision, Photophobia and Visual Loss Narrative Narrative: Patient presents with a headache for the last couple days. Patient states her headache is worse with sitting and standing. Patient states it is better with laying down. Patient had recent epidural anesthesia for childbirth. Patient states her headache is generalized. Patient describes her pain is sharp. Patient admits to nausea but denies any vomiting. Patient denies any visual changes. Patient denies any numbness or tingling. Patient denies any weakness. Patient denies any visual changes. 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 Smoking Status: Never smoker second hand exposure: No alcohol intake: current alcohol intake frequency: holidays/special occasions only details: not while substance use type: does not use seatbelt use: always do you feel safe at home: Yes additional social history: - [place] ROS ROS ED Constitutional Constitutional ED: Denies chills or fever(s) Eyes Eyes: Denies blurry vision or change in vision ENT ENT ED: Denies rhinorrhea or sore throat Cardiovascular Cardiovascular: Denies chest pain or palpitations Respiratory/Chest Respiratory/Chest: Denies cough or dyspnea Gastrointestinal Gastrointestinal: Reports nausea; Denies vomiting Genitourinary Genitourinary ED: Denies dysuria or hematuria Musculoskeletal Musculoskeletal: Denies back pain or neck pain Integumentary Denies abscess or rash Neurologic Neurologic: Reports headache(s); Denies weakness Allergic/Immunologic Allergic/Immunologic ED: Denies mouth swelling or urticaria EXAM Physical Exam Const Vital Signs: 09/28/20 18:05 09/28/20 22:20 Temperature 97.6 F L Temperature Source Temporal Pulse Rate 59 L 88 Respiratory Rate 16 16 Blood Pressure 125/85 H 108/75 Blood Pressure Mean 98 Pulse Ox 100 100 Oxygen Delivery Method Room Air Positive well nourished and well developed General Appearance ED: well developed HEENT Reports moist mucous membranes Neck supple and no JVD Resp normal respiratory effort and clear to auscultation bilaterally Cardio regular rate, regular rhythm and no murmurs GI normal to inspection, nondistended, normoactive bowel sounds and non-tender Palpation: soft Extremity normal to inspection General Extremety ED: Negative for edema or tenderness General Extremity: Negative for edema Neuro oriented x3, CN's II-XII intact bilaterally and no sensory deficits noted Sensorium / Orientation: alert Motor Exam: strength 5/5 throughout Psych mental status grossly normal Skin no rashes or lesions noted MDM MDM MDM Narrative Medical decision making narrative: Patient was given IV fluids and caffeine. Patient feels better on reevaluation. Patient was able to sit up without any headache. Patient wants to go home. Patient was instructed to drink plenty of fluids. Patient was instructed to drink caffeinated beverages. Patient was instructed to follow-up with her primary care physician in 5 to 7 days. Patient understood and was agreeable with the plan. All questions were answered. Discharge Plan Triage Chief Complaint: Headache ED Provider: Manav Davila Dx/Rx/DC Orders Clinical Impression: Spinal headache Instructions: ED Headache After Spinal Tap ... Primary Care Provider: Ge Mix Referrals: Ge Mix MD [Primary Care Provider] - 3-5 Days Disposition Disposition: Home, Self Care Discharge Date/Time: 09/28/20 22:21
[2020-09-28] MEDS: 0.9% Normal Saline 1,000 ML 1000 ML IV (19:05)
[2020-09-28 22:20] VITALS: BP 108/75; PULSE 88; RESP 16; O2SAT 100
== END 2020-09-28 22:21 | disposition home or self-care (01) ==
PROVIDERS: Emergency Provider Emergency Medicine; PCP Family Medicine
DX: O89.4 Spinal and epidural anesthesia-induced headache during the puerperium (principal); R11.0 Nausea; E78.5 Hyperlipidemia, unspecified
CPT/HCPCS: 99283; J7040; A4216